=== PATIENT | female | born 1990 | race Asian ===

== ENCOUNTER 2023-06-21 13:25 | Inpatient (IN) | payer BC, SELFPAY ==
[2023-06-21 13:52] VITALS: BP 126/78; BMI 30.6
[2023-06-21 15:37] LABS: % Basophils 0.2 % (0-2); % Eosinophils 0.6 % (0-6); % Immature Granulocytes 0.6 % (0-0.5); % Monocytes 4.6 % (1.7-9.3); Absolute Eosinophils 0.1 10^3/uL (0-0.7); Absolute Immature Granulocytes 0.1 10^3/uL (0-0.05); Absolute Lymphocytes 1.6 10^3/uL (1.2-3.4); Absolute Monocytes 0.4 10^3/uL (0.1-0.6); Absolute Neutrophils 6.7 10^3/uL (1.4-6.5); Hematocrit 36.5 % (37.0-47.0); Hemoglobin 12.7 g/dL (12.0-16.0); Mean Corp Hgb Conc. 34.8 g/dL (33.0-37.0); Mean Corpuscular Hgb 31.3 pg (27.0-31.0); Mean Corpuscular Volume 89.9 fL (81.0-99.0); Mean Platelet Volume 9.7 fL (7.4-10.4); Nucleated Red Blood Cells % 0 %; Platelet Count 145 10^3/uL (130-400); Red Blood Cell Count 4.06 10^6/uL (4.20-5.40); Red Cell Dist. Width 19.8 % (11.5-14.5); White Blood Cell Count 8.9 10^3/uL (4.8-10.8)
[2023-06-21] MEDS: MORPHINE SULFATE 4 MG IV (16:21)
[2023-06-22] MEDS: SUBLIMAZE 100 MCG EPIDURAL (01:14)
[2023-06-22] MEDS: FENTANYL/BUPIVACAINE 100 EPIDURAL (01:17)
[2023-06-22] MEDS: PITOCIN 30 UNITS/NSS 500 ML IV ×2 (02:30→07:52)
[2023-06-22] MEDS: MOTRIN 600 MG PO ×3 (07:52→21:06)
[2023-06-22] MEDS: TYLENOL 650 MG PO ×2 (14:26→21:06)
[2023-06-22] MEDS: SENOKOT-S 1 TABLET PO (14:28)
[2023-06-22] MEDS: TUMS 2 TABLET PO (16:28)
[2023-06-22] MEDS: PRENATAL PLUS PO (16:28)
[2023-06-22] MEDS: ROXICODONE 5 MG PO (16:45)
[2023-06-22] MEDS: MYLICON 80 MG PO (16:46)
[2023-06-22 22:25] LABS: COVID-19 Antigen Negative (Negative)
[2023-06-23] MEDS: TYLENOL 650 MG PO ×2 (02:13→18:35)
[2023-06-23] MEDS: MOTRIN 600 MG PO ×3 (04:54→21:00)
[2023-06-23 05:13] LABS: Hematocrit 29.9 % (37.0-47.0)
[2023-06-23] MEDS: PRENATAL PLUS 1 TABLET PO (08:24)
[2023-06-23] MEDS: ROBITUSSIN 200 MG PO ×3 (11:11→22:30)
[2023-06-23] MEDS: SENOKOT-S 1 TABLET PO (13:40)
[2023-06-23 17:14] LABS: Syphilis/T. pallidum Ab Reflex Negative (Negative)
[2023-06-24] MEDS: TYLENOL 650 MG PO (02:01)
[2023-06-24] MEDS: MOTRIN 600 MG PO (05:16)
[2023-06-24] MEDS: PRENATAL PLUS 1 TABLET PO (08:30)
[2023-06-24] MEDS: PERCOCET 5/325 1 TABLET PO (09:03)
== END 2023-06-24 13:15 | disposition home or self-care (01) | DRG 807 ==
LOC: LDRP 13:25
PROVIDERS: Obstetrics & Gynecology; ADMITTING PHYSICIAN Obstetrics & Gynecology; ATTENDING PHYSICIAN Obstetrics & Gynecology
PROC: 0KQM0ZZ Repair Perineum Muscle, Open Approach (ICD-10-PCS; 2023-06-22)
PROC: 10907ZC Drainage of Amniotic Fluid, Therapeutic from Products of Conception, Via Natural or Artificial Opening (ICD-10-PCS; 2023-06-22)
PROC: 10E0XZZ Delivery of Products of Conception, External Approach (ICD-10-PCS; 2023-06-22)
DX: O69.81X0 Labor and delivery complicated by cord around neck, without compression, not applicable or unspecified (principal); Z37.0 Single live birth; O76 Abnormality in fetal heart rate and rhythm complicating labor and delivery; O70.1 Second degree perineal laceration during delivery; Z11.52 Encounter for screening for COVID-19; Z3A.39 39 weeks gestation of pregnancy
CPT/HCPCS: 36415; 85014; 85018; 85025; 86780; 86850; 86900; 86901; 87811